=== PATIENT | female | born 1980 | race American Indian/Alaskan Native ===

== ENCOUNTER 2016-11-12 18:09 | Emergency (ER) | payer MEDICAID ==
[~2016-11-12] VITALS: Ht 160 cm; Wt 64.5 kg
[~2016-11-12 18:09] MED LIST: ACET500C5 PO; FAMO-18 PO; ONDA4TAB8 PO
[2016-11-12 18:45] VITALS: Ht 160 cm; Wt 64.5 kg
[2016-11-12] MEDS ORDERED: ONDANSETRON (ODT) 4 MG TAB ODT STA (22:22)
[2016-11-12] MEDS ORDERED: HYDROCODONE/APAP (5/325) TAB PO ONE (22:30)
[2016-11-12] MEDS ORDERED: FAMOTIDINE 20 MG TAB PO ONE (22:30)
--- NOTE | 2016-11-12 22:38 | ERD ---
ER Documentation Chief Complaint Date/Time DATE: 11/12/16 TIME: 22:36 Chief Complaint diffuse abdominal pain for past 4 days with vomiting, no complaints HPI This is a 35-year-old female who presents to the emergency department today complaining of abdominal pain and vomiting for the past 4 days. States she has also had a headache. Denies any fevers or chills. She has not taken any medication for the pain. ROS All systems reviewed and are negative except as per history of present illness. Medications Home Meds Active Scripts Acetaminophen* (Tylophen*) 500 Mg Capsule, 1 CAP PO Q6H Y for PAIN AND OR ELEVATED TEMP, #30 CAP Prov:PROJEFFERSON CHILDRESS-C 11/13/16 Hydrocodone/Acetaminophen ([place] 5-325 Tablet) 1 Each Tablet, 1 TAB PO Q6H Y for PAIN, #12 TAB Prov:PROJEFFERSON CHILDRESS-C 11/13/16 Famotidine* (Pepcid*) 20 Mg Tablet, 20 MG PO BID for 14 Days, TAB Prov:JEFFERSON ALVARADOC 11/13/16 Ondansetron Hcl* (Zofran*) 4 Mg Tablet, 4 MG PO Q6H for NAUSEA AND/OR VOMITING, #30 TAB Prov:JEFFERSON ALVARADOC 11/13/16 Acetaminophen* (Tylophen*) 500 Mg Capsule, 1 CAP PO Q6H Y for PAIN AND OR ELEVATED TEMP, #30 CAP Prov:PROJEFFERSON CHILDRESS-C 07/12/16 Famotidine* (Pepcid*) 20 Mg Tablet, 20 MG PO BID for 14 Days, TAB Prov:PROJEFFERSON CHILDRESS-C 07/12/16 Ondansetron Hcl* (Zofran*) 4 Mg Tablet, 4 MG PO Q6H for NAUSEA AND/OR VOMITING, #30 TAB Prov:JEFFERSON ALVARADO-C 07/12/16 Allergies Allergies: Uncoded Allergies: pcn (Allergy, Unknown, 11/12/16) PMhx/Soc Hx Alcohol Use: No Hx Substance Use: No Hx Tobacco Use: No Physical Exam Vitals Vital Signs Date Time Temp Pulse Resp B/P Pulse Ox O2 Delivery O2 Flow Rate FiO2 11/12/16 18:45 98.7 92 18 121/75 100 Physical Exam Const: No acute distress Head: Atraumatic Eyes: Normal Conjunctiva ENT: Normal External Ears, Nose and Mouth. Neck: Full range of motion..~ No meningismus. Resp: Clear to auscultation bilaterally Cardio: Regular rate and rhythm, no murmurs Abd: Soft, epigastric tenderness non distended. Normal bowel sounds. No right lower quadrant pain. No left lower quadrant pain. Skin: No petechiae or rashes Back: No midline or flank tenderness Ext: No cyanosis, or edema Neur: Awake and alert Psych: Normal Mood and Affect Result Diagram: 11/12/160 11/12/16 230 Results 24 hrs Laboratory Tests Test 11/12/16 22:59 11/12/16 23:00 Bedside Urine Blood Trace-intact Bedside Urine Glucose (UA) Negative Bedside Urine Ketones (LAB) Trace Bedside Urine Leukocyte Esterase (L Trace Bedside Urine Nitrite (LAB) Negative Bedside Urine Protein (LAB) Negative Bedside Urine pH (LAB) 8.5 Alanine Aminotransferase (ALT/SGPT) 43IU/L Albumin 5.0g/dl Albumin/Globulin Ratio 1.28 Alkaline Phosphatase 61IU/L Anion Gap 20 Aspartate Amino Transf (AST/SGOT) 27IU/L Basophils # 0.010^3/ul Basophils % 0.4% Blood Urea Nitrogen 11mg/dl Calcium Level 9.9mg/dl Carbon Dioxide Level 28mmol/L Chloride Level 99mmol/L Creatinine 0.59mg/dl Direct Bilirubin 0.00mg/dl Eosinophils # 0.010^3/ul Eosinophils % 0.5% Globulin 3.90g/dl Glucose Level 96mg/dl Hematocrit 45.9% Hemoglobin 15.6g/dl Indirect Bilirubin 0.9mg/dl Lipase 100U/L Lymphocytes # 1.910^3/ul Lymphocytes % 24.5% Mean Corpuscular Hemoglobin 31.7pg Mean Corpuscular Hemoglobin Concent 33.9g/dl Mean Corpuscular Volume 93.6fl Mean Platelet Volume 9.1fl Monocytes # 0.410^3/ul Monocytes % 5.7% Neutrophils # 5.410^3/ul Neutrophils % 68.9% Nucleated Red Blood Cells # 0.010^3/ul Nucleated Red Blood Cells % 0.0/100WBC Platelet Count 48703^3/UL Potassium Level 4.0mmol/L Red Blood Count 4.9010^6/ul Red Cell Distribution Width 11.8% Sodium Level 143mmol/L Total Bilirubin 0.9mg/dl Total Protein 8.9g/dl White Blood Count 7.810^3/ul Current Medications Medications (Trade) Dose Ordered Sig/Kobe Route PRN Reason Start Time Stop Time Status Last Admin Dose Admin Ondansetron HCl (Zofran Odt) 4 mg ONCE STAT ODT 11/12/16 22:22 11/12/16 22:30 DC 11/12/16 22:54 Famotidine (Pepcid) 20 mg ONCE ONCE PO 11/12/16 22:30 11/12/16 22:31 DC 11/12/16 22:54 Acetaminophen/ Hydrocodone Bitart ([place] (5/325)) 1 tab ONCE ONCE PO 11/12/16 22:30 11/12/16 22:31 DC 11/12/16 22:54 Patient: MAURICIO EWING : 1980 Age: 35 Sex: F MR #: [id number] DOS: 11/12/16 0000 Ordering MD: JEFFERSON ALVARADO PA-C Location: [facility] Room/Bed: PROCEDURE: Ultrasound examination of the abdomen. CLINICAL INDICATION: Epigastric pain. TECHNIQUE: Ultrasound examination of the abdomen with focus on the right upper quadrant. COMPARISON: None. FINDINGS: Mild gallbladder sludge. Otherwise, no gallstones, gallbladder wall thickening and pericholecystic fluid. Gallbladder wall measures 3 mm. Common bile duct is unremarkable measuring 4 mm. Liver is unremarkable measuring 168 mm. Right kidney measures 113 mm, and there is no evident renal mass, hydronephrosis retained calculus. Visualized portions of the pancreas are unremarkable. IMPRESSION: 1. Mild gallbladder sludge, otherwise, without stones, gallbladder wall thickening or pericholecystic fluid. 2. In setting of epigastric pain findings may represent manifestation of acalculus cholecystitis in the appropriate clinical setting. 3. Otherwise, no evident acute process in the right upper quadrant. RPTAT: [facility] Physician Tom Date Time Electronically viewed and signed by Rebecca Rondon Physician on 11/12/2016 23:46 RS/ CC: JEFFERSON ALVARADO PA-C Procedures/MDM This is a 35-year-old female who presents to emergency department today complaining of abdominal pain and vomiting for the past 4 days and a headache. On physical exam patient had tenderness only in the epigastric region. I did obtain laboratory work as well as a right upper quadrant ultrasound to rule out possible gallstones. I also obtained a UA Laboratory work shows no elevated white blood cell count. She is not anemic. Platelets are within normal limits. Electrolytes are within normal limits. Glucose is within normal limits. Liver function is within normal limits. Lipase is within normal limits. UA shows trace leukocyte Estrace negative nitrites. Urine test is negative. Right Upper quadrant ultrasound shows mild gallbladder sludge, otherwise no gallstones, gallbladder wall thickening or pericholecystic fluid. Common bile duct is unremarkable. Symptoms at this time maybe related to the gallbladders lied to her biliary colic versus gastritis. There is no evidence to suggest acute surgical abdomen at this time. Patient was given Zofran, Pepcid, [place] here in the emergency department and symptoms improved. She'll be given a prescription for Zofran, Pepcid, [place] and Tylenol for home. Discussed the case with Dr. Nolan and he is in agreement with the plan. Departure Diagnosis: Primary Impression: Epigastric pain Condition: Fair JEFFERSON ALVARADO PA-C Nov 12, 2016 22:38
[2016-11-12 23:00] LABS: URINE BLOOD (Dip) POC Trace-intact (NEGATIVE)
[2016-11-12 23:13] LABS: BASOPHILS % 0.4 % (0.0-2.0); EOSINOPHILS % 0.5 % (0.0-7.0); HEMATOCRIT 45.9 % (37.0-47.0); HEMOGLOBIN 15.6 g/dl (12.0-16.0); LYMPHOCYTES # 1.9 10^3/ul (0.8-2.9); LYMPHOCYTES % 24.5 % (15.0-51.0); MEAN CORPUSCULAR HEMOGLOBIN 31.7 pg (29.0-33.0); MEAN CORPUSCULAR HGB CONC 33.9 g/dl (32.0-37.0); MEAN CORPUSCULAR VOLUME 93.6 fl (82.0-101.0); MEAN PLATELET VOLUME 9.1 fl (7.4-10.4); MONOCYTE # 0.4 10^3/ul (0.3-0.9); MONOCYTES % 5.7 % (0.0-11.0); NEUTROPHIL # 5.4 10^3/ul (1.6-7.5); NEUTROPHILS % 68.9 % (39.0-77.0); PLATELET COUNT 258 10^3/UL (140-440); RED CELL DISTRIBUTION WIDTH 11.8 % (11.5-14.5); UNCORRECTED WBC 7.8 10^3/ul (4.8-10.8); WHITE BLOOD COUNT 7.8 10^3/ul (4.8-10.8)
[2016-11-12 23:27] LABS: CONDITION 1
[2016-11-12 23:33] LABS: ALBUMIN/GLOBULIN RATIO 1.28; BILIRUBIN,INDIRECT 0.9 mg/dl (0-1.1); BILIRUBIN,TOTAL 0.9 mg/dl (0.2-1.3); CALCIUM 9.9 mg/dl (8.4-10.2); CREATININE 0.59 mg/dl (0.44-1.00); TOTAL PROTEIN 8.9 g/dl (6.1-8.1)
--- NOTE | 2016-11-12 23:47 | RADRPT ---
PROCEDURE: Ultrasound examination of the abdomen. CLINICAL INDICATION: Epigastric pain. TECHNIQUE: Ultrasound examination of the abdomen with focus on the right upper quadrant. COMPARISON: None. FINDINGS: Mild gallbladder sludge. Otherwise, no gallstones, gallbladder wall thickening and pericholecystic fluid. Gallbladder wall measures 3 mm. Common bile duct is unremarkable measuring 4 mm. Liver is unremarkable measuring 168 mm. Right kidney measures 113 mm, and there is no evident renal mass, hydronephrosis retained calculus. Visualized portions of the pancreas are unremarkable. IMPRESSION: 1. Mild gallbladder sludge, otherwise, without stones, gallbladder wall thickening or pericholecyst ic fluid. 2. In setting of epigastric pain findings may represent manifestation of acalculus cholecystitis in the appropriate clinical setting. 3. Otherwise, no evident acute process in the right upper quadrant. RPTAT: [facility] Physician Tom Date Time Electronically viewed and signed by Physician Tom on 11/12/2016 23:46 RS/
[2016-11-13] MEDS ORDERED: ONDA4TAB8 PO (00:15)
[2016-11-13] MEDS ORDERED: HYDR-906 PO (00:16)
[2016-11-13] MEDS ORDERED: FAMO-18 PO (00:16)
[2016-11-13] MEDS ORDERED: ACET500C5 PO (00:16)
[2016-11-13 01:21] VITALS: BP 134/70; PULSE 78; RESP 18
== END 2016-11-13 01:22 | disposition home or self-care (01) ==
LOC: FTE 18:09
DX: R10.13 Epigastric pain (principal); R11.10 Vomiting, unspecified
CPT/HCPCS: 76705; 80053; 81003; 83690; 85025; Z7610; 36415

== ENCOUNTER 2017-04-12 10:45 | Emergency (ER) | payer MEDICAID ==
[~2017-04-12] VITALS: Wt 65.0 kg
[~2017-04-12 10:45] MED LIST changes: +HYDR-906 PO
[2017-04-12 12:10] LABS: ADD UMIC YES; URINE BILIRUBIN (Dip) NEGATIVE (NEGATIVE); URINE BLOOD (Dip) TRACE (NEGATIVE); URINE COLOR LT. YELLOW (YELLOW); URINE GLUCOSE (Dip) NEGATIVE (NEGATIVE); URINE KETONES (Dip) NEGATIVE (NEGATIVE); URINE LEUKOCYTE ESTERASE (Dip) 1+ (NEGATIVE); URINE NITRITE (Dip) NEGATIVE (NEGATIVE); URINE TOTAL PROTEIN (Dip) NEGATIVE (NEGATIVE); URINE UROBILINOGEN (Dip) 0.2 E.U./dL (0.1-1.0)
--- NOTE | 2017-04-12 12:11 | ERD ---
ER Documentation Chief Complaint Date/Time DATE: 04/12/17 TIME: 12:10 Chief Complaint bladder pain HPI 36-year-old female otherwise healthy comes in with suprapubic pressure-like pain with painful urination on and off for the past month. She states it is localized pain, does not radiate elsewhere. She has burning pain when she urinates as well. She has not had any fevers, chills, nausea or vomiting. Denies flank pain or hematuria. No associated vaginal bleeding or vaginal discharge. ROS All systems reviewed and are negative except as per history of present illness. Medications Home Meds Active Scripts Phenazopyridine Hcl* (Pyridium*) 100 Mg Tab, 100 MG PO TID Y for URINARY PAIN, # 8 TAB Prov:PATRICIA LITTLE PA-C 04/12/17 Cephalexin* (Keflex*) 500 Mg Capsule, 500 MG PO TID for 7 Days, CAP Prov:PATRICIA LITTLE PA-C 04/12/17 Acetaminophen* (Tylophen*) 500 Mg Capsule, 1 CAP PO Q6H Y for PAIN AND OR ELEVATED TEMP, #30 CAP Prov:JEFFERSON ALVARADO PA-C 11/13/16 Hydrocodone/Acetaminophen ([place] 5-325 Tablet) 1 Each Tablet, 1 TAB PO Q6H Y for PAIN, #12 TAB Prov:JEFFERSON ALVARADOC 11/13/16 Famotidine* (Pepcid*) 20 Mg Tablet, 20 MG PO BID for 14 Days, TAB Prov:JEFFERSON ALVARADOC 11/13/16 Ondansetron Hcl* (Zofran*) 4 Mg Tablet, 4 MG PO Q6H for NAUSEA AND/OR VOMITING, #30 TAB Prov:JEFFERSON ALVARADOC 11/13/16 Acetaminophen* (Tylophen*) 500 Mg Capsule, 1 CAP PO Q6H Y for PAIN AND OR ELEVATED TEMP, #30 CAP Prov:JEFFERSON ALVARADOC 07/12/16 Famotidine* (Pepcid*) 20 Mg Tablet, 20 MG PO BID for 14 Days, TAB Prov:JEFFERSON ALVARADOC 07/12/16 Ondansetron Hcl* (Zofran*) 4 Mg Tablet, 4 MG PO Q6H for NAUSEA AND/OR VOMITING, #30 TAB Prov:JEFFERSON ALVARADO PA-C 07/12/16 Allergies Allergies: Uncoded Allergies: pcn (Allergy, Unknown, 11/12/16) PMhx/Soc History of Surgery: No Anesthesia Reaction: No Hx Neurological Disorder: No Hx Respiratory Disorders: No Hx Cardiac Disorders: No Hx Psychiatric Problems: No Hx Miscellaneous Medical Probl: No Hx Alcohol Use: No Hx Substance Use: No Hx Tobacco Use: No Smoking Status: Never smoker Physical Exam Vitals Vital Signs Date Time Temp Pulse Resp B/P Pulse Ox O2 Delivery O2 Flow Rate FiO2 04/12/17 10:47 97.8 93 20 122/67 100 Physical Exam General: Well-developed, well-nourished. The patient appears in no acute distress. HEENT: Head is normocephalic, atraumatic. No scleral icterus. Neck: Supple. Nontender. Lungs: Clear to auscultation. Normal air movement. Heart: Regular rate and rhythm. S1 and S2 are normal. No murmurs, gallops, or rubs. Abdomen: Soft, suprapubic tenderness nondistended. Bowel sounds are normoactive. There is no rebound pain or McBurney's tenderness. Extremities: No clubbing or cyanosis. Normal pulses. Moving extremities x 4. No weakness. Neurologic: Alert and oriented 3. No focal deficits. Skin: Normal turgor. No rash or lesions. Results 24 hrs Laboratory Tests Test 04/12/17 11:46 Urine Color LT. YELLOW Urine Clarity SLIGHTLY CLOUDY Urine pH 6.5 Urine Specific [place] 1.015 Urine Ketones NEGATIVE Urine Nitrite NEGATIVE Urine Bilirubin NEGATIVE Urine Urobilinogen 0.2 E.U./dL Urine Leukocyte Esterase 1+ Urine Microscopic RBC NONE SEEN/HPF Urine Microscopic WBC 5-10/HPF Urine Squamous Epithelial Cells MODERATE Urine Hemoglobin TRACE Urine Glucose NEGATIVE% Urine Total Protein NEGATIVE Urine is negative. Procedures/MDM 36-year-old female comes emergency room with suprapubic pelvic pain, painful urination. Patient has a urinary tract infections and urinalysis today. Other differentials considered but unlikely include pyelonephritis, kidney stones, cervicitis, PID, ovarian torsion, tubo-ovarian abscess. Departure Diagnosis: Primary Impression: UTI (urinary tract infection) Condition: Good PATRICIA LITTLE PA-C Apr 12, 2017 12:11
[2017-04-12 12:28] LABS: SQUAMOUS EPITHELIAL CELL,UR MODERATE; URINE RBCS NONE SEEN /HPF (0)
[2017-04-12] MEDS ORDERED: PHEN-537 PO (12:32)
[2017-04-12] MEDS ORDERED: CEPH-443 PO (12:32)
== END 2017-04-12 13:10 | disposition home or self-care (01) ==
LOC: FTE 10:45
DX: N39.0 Urinary tract infection, site not specified (principal); R10.2 Pelvic and perineal pain
CPT/HCPCS: 81001; Z7502; 99283

== ENCOUNTER 2019-09-07 08:37 | Emergency (ER) | payer MEDICAID ==
[~2019-09-07] VITALS: Ht 160 cm; Wt 67.0 kg
[~2019-09-07 08:37] MED LIST changes: +ACET325T33 PO; +CEPH-443 PO; +CIPR500T4 PO; +CYCL10TA7 PO; -FAMO-18 PO; +FAMO-96 PO; +HYDR-4011 PO; -HYDR-906 PO; +IBUP-1542 PO; +ONDA4TAB14 PO; +ONDA8TAB14 PO; +PHEN-537 PO
[2019-09-07 08:41] VITALS: BP 113/72; PULSE 78; RESP 18; Ht 160 cm; Wt 67.0 kg
== END 2019-09-07 10:03 | disposition home or self-care (01) ==
LOC: FTE 08:37
DX: R10.13 Epigastric pain (principal)
CPT/HCPCS: 36415; 76705; 80053; 81001; 81025; 83690; 85025; Z7502